=== PATIENT | male | born 1960 | race Caucasian/White ===

== ENCOUNTER → 2017-11-28 | Outpatient (CLI) | payer BC ==
[~2017-11-28] MED LIST: DAILY MULTIPLE1 EACH PO; EFFEXOR XR150 MG PO; WELLBUTRIN XL150 MG PO
== END | disposition home or self-care (01) ==
LOC: NUC 09:42
DX: M19.042 Primary osteoarthritis, left hand (principal); M19.041 Primary osteoarthritis, right hand; M17.11 Unilateral primary osteoarthritis, right knee; M19.071 Primary osteoarthritis, right ankle and foot; M16.11 Unilateral primary osteoarthritis, right hip
CPT/HCPCS: 78306; A9503

== ENCOUNTER 2017-12-19 01:12 | Emergency (ER) | payer BC ==
[~2017-12-19] VITALS: Ht 170.2 cm; Wt 94.7 kg
[2017-12-19 01:39] LABS: BASOPHIL (%) 0.5 % (0-1); BASOPHIL COUNT 0.1 K/uL (0-0.1); EOSINOPHIL (%) 2.8 % (0-5); EOSINOPHIL COUNT 0.3 K/uL (0-0.3); HEMATOCRIT 41.2 % (38.0-50.0); HEMOGLOBIN 14.1 G/DL (12.5-16.6); IMMATURE GRANULOCYTE (%) 0.6 % (0.0-0.7); LYMPHOCYTE (%) 30.4 % (15-42); LYMPHOCYTE COUNT 3.4 K/uL (1.0-2.8); MCH 32.3 PG (29.0-34.0); MCHC 34.2 G/DL (30.0-36.0); MCV 94.3 FL (86-99); MONOCYTE (%) 7.2 % (3-12); MONOCYTE COUNT 0.8 K/uL (0-0.8); NEUTROPHIL (%) 58.5 % (45-76); NEUTROPHIL COUNT 6.5 K/uL (1.8-6.4); PLATELET COUNT 198 K/uL (156-360); RBC DIS.WIDTH-CV 13.5 % (11.8-14.6); RBC DIS.WIDTH-SD 46.6 % (39-53); RED BLOOD COUNT 4.37 M/uL (4.00-5.50); WHITE BLOOD COUNT 11.1 K/uL (4.1-10.2)
[2017-12-19 01:49] LABS: CHLORIDE 105 mEq/L (99-109); POTASSIUM 4.1 mEq/L (3.7-5.4); SODIUM 137 mEq/L (136-147)
[2017-12-19 01:51] LABS: GLUCOSE 93 mg/dL (70-99)
[2017-12-19 01:51] LABS: AMPHETAMINE NEGATIVE (500 ng/mL); BARBITURATES NEGATIVE (200 ng/mL); BENZODIAZEPINES NEGATIVE (150 ng/mL); BUPRENORPHINE NEGATIVE (10 ng/mL); COCAINE NEGATIVE (150 ng/mL); METHADONE NEGATIVE (200 ng/mL); METHAMPHETAMINE NEGATIVE (500 ng/mL); OPIATES (MORPHINE) NEGATIVE (100 ng/mL); OXYCODONE NEGATIVE (100 ng/mL); PHENCYCLIDINE NEGATIVE (25 ng/mL); PROPOXYPHENE NEGATIVE (300 ng/mL); THC CANNABINOIDS NEGATIVE (50 ng/mL); TRICYCLIC ANTIDEPRESSANTS NEGATIVE (300 ng/mL)
[2017-12-19 01:54] LABS: SERUM ETHYL ALCOHOL 130 mg/dL
[2017-12-19 01:55] LABS: GFR ESTIMATE (CALCULATED) > 59 mL/min/ (58.99-99999)
[2017-12-19 01:56] LABS: UREA NITROGEN (BUN) 12 mg/dL (9-23)
[2017-12-19 04:42] VITALS: BP 147/98
== END 2017-12-19 04:43 | disposition home or self-care (01) ==
LOC: EME 01:12
PROVIDERS: Emergency Medicine
DX: F32.9 Major depressive disorder, single episode, unspecified (principal); F17.200 Nicotine dependence, unspecified, uncomplicated; Z85.46 Personal history of malignant neoplasm of prostate
CPT/HCPCS: 80048; 85025; 90839; 99281; 99285; G0480

== ENCOUNTER 2018-05-06 23:38 | Inpatient (IN) | payer BC ==
[~2018-05-06] VITALS: Ht 170.2 cm; Wt 94.4 kg
[2018-05-07 01:17] LABS: HEMATOCRIT 38.1 % (38.0-50.0); HEMOGLOBIN 13.4 G/DL (12.5-16.6); MCH 31.8 PG (29.0-34.0); MCHC 35.2 G/DL (30.0-36.0); MCV 90.3 FL (86-99); PLATELET COUNT 173 K/uL (156-360); RBC DIS.WIDTH-CV 12.6 % (11.8-14.6); RBC DIS.WIDTH-SD 41.5 % (39-53); RED BLOOD COUNT 4.22 M/uL (4.00-5.50); WHITE BLOOD COUNT 8.1 K/uL (4.1-10.2)
[2018-05-07 01:24] LABS: CHLORIDE 101 mEq/L (99-109); POTASSIUM 3.7 mEq/L (3.7-5.4); SODIUM 137 mEq/L (136-147)
[2018-05-07 01:26] LABS: GLUCOSE 87 mg/dL (70-99)
[2018-05-07 01:29] LABS: SERUM ETHYL ALCOHOL 159 mg/dL
[2018-05-07 01:30] LABS: GFR ESTIMATE (CALCULATED) > 59 mL/min/ (58.99-99999)
[2018-05-07 01:32] LABS: UREA NITROGEN (BUN) 10 mg/dL (9-23)
[2018-05-07 01:33] LABS: SALICYLATE < 5.0 MG/DL (15-30)
[2018-05-07 01:34] LABS: ACETAMINOPHEN (TYLENOL) < 10 mcg/mL (10-30)
[2018-05-07 03:28] LABS: AMPHETAMINE NEGATIVE (500 ng/mL); BARBITURATES NEGATIVE (200 ng/mL); BENZODIAZEPINES NEGATIVE (150 ng/mL); BUPRENORPHINE NEGATIVE (10 ng/mL); COCAINE NEGATIVE (150 ng/mL); METHADONE NEGATIVE (200 ng/mL); METHAMPHETAMINE NEGATIVE (500 ng/mL); OPIATES (MORPHINE) NEGATIVE (100 ng/mL); OXYCODONE NEGATIVE (100 ng/mL); PHENCYCLIDINE NEGATIVE (25 ng/mL); PROPOXYPHENE NEGATIVE (300 ng/mL); THC CANNABINOIDS PRESUMPTIVE POSITIVE (50 ng/mL); TRICYCLIC ANTIDEPRESSANTS NEGATIVE (300 ng/mL)
[2018-05-07] MEDS ORDERED: XTANDI40 MG PO (06:40)
[2018-05-07] MEDS ORDERED: SEROQUEL12.5 MG PO (06:42)
[2018-05-07] MEDS ORDERED: ATIVAN1 MG PO (06:44)
[2018-05-07] MEDS ORDERED: LUPRON DEPOT3.75 M1 IM (06:48)
[2018-05-07] MEDS ORDERED: LIPITOR10 MG PO (06:50)
[2018-05-07] MEDS ORDERED: CALCIUM + D SO1 EACH PO (06:51)
[2018-05-07 08:19] VITALS: BP 104/59
[2018-05-07 15:17] VITALS: BP 112/59
[2018-05-08 08:02] VITALS: BP 113/75
[2018-05-08 17:01] VITALS: BP 116/61
[2018-05-09 07:40] VITALS: BP 140/76
[2018-05-09 14:54] VITALS: BP 119/71
[2018-05-10 07:31] VITALS: BP 114/76
[2018-05-10 15:08] VITALS: BP 109/57
[2018-05-11 07:48] VITALS: BP 108/84
[2018-05-11] MEDS ORDERED: ABILIFY2 MG PO (08:59)
== END 2018-05-11 10:30 | disposition home or self-care (01) | DRG 885 ==
LOC: EME 23:38 → EDOF 05-07 04:26 → 1WEST 05-07 04:26 → ENRESERV 05-07 05:16 → 1WEST 05-07 05:35
PROVIDERS: Emergency Medicine
DX: F33.2 Major depressive disorder, recurrent severe without psychotic features (principal); R45.851 Suicidal ideations; F23 Brief psychotic disorder; F10.229 Alcohol dependence with intoxication, unspecified; Y90.6 Blood alcohol level of 120-199 mg/100 ml; F17.210 Nicotine dependence, cigarettes, uncomplicated; C61 Malignant neoplasm of prostate; F12.90 Cannabis use, unspecified, uncomplicated; F41.9 Anxiety disorder, unspecified; F22 Delusional disorders; Z88.6 Allergy status to analgesic agent; Z91.14 Patient's other noncompliance with medication regimen; Z73.6 Limitation of activities due to disability; Z63.0 Problems in relationship with spouse or partner
CPT/HCPCS: 80048; 84999; 85027; 90837; 97150 GO; 97165 GO; 99281; 99285; G0480